=== PATIENT | female | born 1990 | race Caucasian/White ===

== ENCOUNTER 2023-06-06 20:56 | Emergency (ER) | payer OTHER, SELFPAY ==
[2023-06-06 21:00] VITALS: BP 146/81
[2023-06-06 21:19] LABS: % Basophils 0.8 % (0-2); % Eosinophils 3.1 % (0-6); % Immature Granulocytes 0.2 % (0-0.5); % Lymphocytes 39.2 % (20.5-51.1); % Monocytes 6.9 % (1.7-9.3); % Neutrophils 49.8 % (42.2-75.2); Absolute Basophils 0.1 10^3/uL (0-0.2); Absolute Eosinophils 0.3 10^3/uL (0-0.7); Absolute Lymphocytes 3.3 10^3/uL (1.2-3.4); Absolute Monocytes 0.6 10^3/uL (0.1-0.6); Absolute Neutrophils 4.2 10^3/uL (1.4-6.5); Hematocrit 35.2 % (37.0-47.0); Hemoglobin 11.9 g/dL (12.0-16.0); Mean Corp Hgb Conc. 33.8 g/dL (33.0-37.0); Mean Corpuscular Hgb 29.8 pg (27.0-31.0); Mean Platelet Volume 8.2 fL (7.4-10.4); Nucleated Red Blood Cells % 0 %; Platelet Count 295 10^3/uL (130-400); Red Cell Dist. Width 12.5 % (11.5-14.5); White Blood Cell Count 8.5 10^3/uL (4.8-10.8)
[2023-06-06 21:29] LABS: HCG, Serum Qualitative Screen Negative
[2023-06-06 21:34] LABS: ALT (SGPT) 29 U/L (0-35); AST (SGOT) 26 U/L (14-36); Albumin 4.5 g/dl (3.5-5.0); Alkaline Phosphatase 49 U/L (38-126); Blood Urea Nitrogen 13 mg/dl (7-17); Calcium 9.3 mg/dl (8.4-10.2); Carbon Dioxide 24 mmol/L (22-30); Chloride 104 mmol/L (98-107); Glucose 99 mg/dl (70-99); Sodium 138 mmol/L (135-145); Total Bilirubin 0.4 mg/dl (0.2-1.3); Total Protein 7.4 g/dl (6.3-8.2); eGFR > 60.00
[2023-06-06 21:39] LABS: Potassium 3.8 mmol/L (3.5-5.1)
[2023-06-06 22:30] VITALS: BP 120/78
[2023-06-06 23:00] VITALS: BP 124/82
--- NOTE | 2023-06-07 | ED.GENMED ---
History of Present Illness
General
Chief Complaint: Rectal Bleeding
Source: patient
Exam Limitations: none
Time Seen by Provider: 06/06/23 23:23
Nursing documentation reviewed up to this point in time: agreed with
Travel History
Have you had any contact with someone who has COVID-19?: No
Do you have any symptoms of coronavirus? Fever > 100 degrees, chills, cough, shortness of breath, sore throat, loss of taste or smell, muscle aches, or headache?: No
History of Present Illness
History of Present Illness:
This is a 33-year-old woman who complains of bright red blood streaked around brown soft stools that began this evening. She has been passing soft stools throughout the day today and has had several bowel movements tonight passing soft stools mixed
with bright red blood. She denies abdominal pain but does admit to very mild rectal pressure. She denies anal pain, denies pain with defecating. She denies nausea nor vomiting, no back pain, no chest pain, no dizziness nor lightheadedness, no
fevers or chills.
No history of similar episodes in the past.
She takes no anticoagulants.
She shows me a picture on her cell phone with a few small soft stools in the toilet with scant bright red blood tingeing of toilet water but no clots nor significant blood mixed with stool.
She denies risk of , has Mirena IUD in place.
Past History
Past History
ED Past Medical History: Psychiatric (anxiety) and Other (IBS)
ED Past Surgical History: Cholecystectomy (2010), and Other (Chiari malf surgery 2017, breast implants)
Social History
Tobacco: Non-smoker
Alcohol: None
Drug: None
Personal:
Living: with family
Employment: Employed
Family History
Family History: Other (Noncontributory)
Phy Exam
Physical Exam
Physical Exam:
GENERAL: 33-year-old female appears her stated age, bright and alert, pleasant, appears in no acute distress.
EYE: anicteric
NECK: Supple, nontender, no meningismus, no significant adenopathy.
ENT: oral mucosa is moist. No rhinorrhea.
CARDIAC: Regular rate and rhythm. no murmur.
LUNGS: Clear breath sounds bilaterally, no acute respiratory distress, no wheezes/rales/rhonchi
ABDOMEN: Soft, nondistended, without focal tenderness, no r/g, no cvat. normoactive BS. Rectal exam reveals no anal fissures nor external hemorrhoids. There is mild soft fullness palpable along the posterior mid rectal wall but no rectal
tenderness. No gross blood per rectum. Heme positive.
NEUROLOGICAL: Alert and oriented x3, no focal neuro deficits. Gait is verdugo and steady.
SKIN: Warm and dry, normal color, skin intact. No rash.
MUSCULOSKELETAL: No C/C/E. peripheral pulses are full and equal b/l. No palpable tenderness.
PSYCH: Normal and appropriate interaction.
Course
Orders/Labs/Results
Orders:
Orders
06/06/23 21:04
Test Result ONCE
06/06/23 21:12
Type+Screen Urgent
Complete Blood Count/With Diff Urgent
Comprehensive Metabolic Panel Urgent
HCG, Serum Qualitative Screen Urgent
06/07/23 00:15
Anusol Hc Suppository [Anusol Hc] 25 mg RECTAL NOW STA
Abnormal Lab Results
06/06/23
21:12
RBC 4.00 L 10^6/uL
(4.20-5.40)
Hgb 11.9 L g/dL
(12.0-16.0)
Hct 35.2 L %
(37.0-47.0)
06/06/23 21:12
06/06/23 21:12
Vital Signs
Initial and Last Documented VS:
Initial Vital Signs
Temp Pulse Resp BP Pulse Ox
98.6 F 82 17 146/81 100
06/06/23 21:00 06/06/23 21:00 06/06/23 21:00 06/06/23 21:00 06/06/23 21:00
Last Documented Vital Signs
Temp Pulse Resp BP Pulse Ox
98.6 F 76 16 124/82 100
06/06/23 21:00 06/06/23 22:35 06/06/23 22:35 06/06/23 23:00 06/06/23 23:15
MDM/Problems Addressed
Differential Diagnosis Includes:
Patient presents with bright red blood per rectum mixed about soft formed stools.
Admits to mild rectal pressure but no pain, no abdominal pain, hemodynamically stable and no symptoms suggestive of hemodynamic instability.
Exam remarkable for mild soft fullness posterior mid to proximal rectum on digital rectal exam but no tenderness, no gross blood per rectum.
Labs are reassuring with hemoglobin of 11.9
I suspect bright red rectal bleeding is internal hemorrhoid in nature and recommend a course of Anusol suppositories.
Discussed importance of remaining well-hydrated, adding fiber to diet. Avoid straining at stool.
Will refer to GI for follow-up.
Return precautions discussed.
*Pulse Oximetry
Patient hypoxic: no
*Critical Care Note
Total Time (30-74mins, 75-104mins- exclusive of procedures): Not Applicable
ED Attending Note
-
Portions of this chart may have been created with voice recognition software.� Occasional wrong word or��sound alike� substitutions may have occurred due to the inherent limitations of voice recognition software.
Discharge Plan
Departure
Patient Disposition: Home (Routine Discharge)
Date of Disposition: 06/07/23
Time of Disposition: 00:04
Patient with high blood pressure during this ER visit?: No
Condition: Good
Discharge Problem:
Bright red rectal bleeding, Internal bleeding hemorrhoids
Instructions: Hemorrhoids (DC), Gastrointestinal Bleeding (DC)
Prescriptions:
New
hydrocortisone acetate [Anusol-HC] 25 mg suppository
25 mg [place] BID Qty: 24 0RF
No Action
Celexa:
20 mg PO DAILY
sucralfate [Carafate] 1 GM/10 ML suspension
1 gm PO QID Qty: 400 0RF
cephalexin 500 mg capsule
500 mg PO Q6H 10 Days Qty: 40 0RF
Referrals:
Hardik Wei MD [Active] - Call in 1-3 days for appt
Erica Cohen CRNP [Family Provider] -
Interventions
Interventions:
*Risk Screen - Suicide Last Done: 06/06/23 21:00
*General Assessment Last Done: 06/06/23 21:00
*Neglect/Abuse Screening Last Done: 06/06/23 21:00
ED- Fall Risk Assessment Last Done: 06/06/23 22:35
*ED COVID-19 Vaccine History Last Done: 06/06/23 21:00
CG-Cdhyxl-Qsfoiyqxvg Assessment Last Done: 06/06/23 22:35
ED- Cardiac Assessment Last Done: 06/06/23 22:35
ED- Pulmonary Assessment Last Done: 06/06/23 22:35
[2023-06-07] MEDS: ANUSOL HC 25 MG RECTAL (00:42)
== END 2023-06-07 00:49 | disposition home or self-care (01) ==
LOC: EMR 20:56
PROVIDERS: Emergency Medicine; EMERGENCY PHYSICIAN Emergency Medicine; FAMILY PHYSICIAN Nurse Practitioner Adult Health
DX: K62.5 Hemorrhage of anus and rectum (principal); K64.8 Other hemorrhoids; F41.9 Anxiety disorder, unspecified; K58.9 Irritable bowel syndrome, unspecified; Z90.49 Acquired absence of other specified parts of digestive tract
CPT/HCPCS: 99283; 80053; 84703; 85025; 86850; 86900; 86901

== ENCOUNTER → 2023-06-20 20:38 | Outpatient (REF) | payer OTHER, SELFPAY | LOC: MRI 3T 20:38 | PROVIDERS: ATTENDING PHYSICIAN Nurse Practitioner; FAMILY PHYSICIAN Nurse Practitioner Adult Health | DX: Z86.69 Personal history of other diseases of the nervous system and sense organs (principal); R51.9 Headache, unspecified | CPT/HCPCS: 70551 ==

== ENCOUNTER → 2023-08-27 10:45 | Outpatient (REF) | payer OTHER, SELFPAY | LOC: RAD 10:45 | PROVIDERS: ATTENDING PHYSICIAN Internal Medicine Gastroenterology; FAMILY PHYSICIAN Nurse Practitioner Adult Health | DX: K52.9 Noninfective gastroenteritis and colitis, unspecified (principal) | CPT/HCPCS: 74022 ==

== ENCOUNTER → 2024-01-15 19:46 | Outpatient (REF) | payer OTHER, SELFPAY | LOC: MRI 19:46 | PROVIDERS: ATTENDING PHYSICIAN Physician Assistant Medical; FAMILY PHYSICIAN Nurse Practitioner Adult Health | DX: M79.609 Pain in unspecified limb (principal); R20.2 Paresthesia of skin | CPT/HCPCS: 70553; 72156; A9575 ==

== ENCOUNTER 2024-01-17 18:11 | Emergency (ER) | payer OTHER, SELFPAY ==
[2024-01-17 18:13] VITALS: BP 136/86
[2024-01-17 19:39] VITALS: BP 122/71
[2024-01-17 20:30] LABS: % Basophils 0.4 % (0-2); % Immature Granulocytes 0.2 % (0-0.5); % Lymphocytes 35.7 % (20.5-51.1); % Monocytes 6.2 % (1.7-9.3); % Neutrophils 57.5 % (42.2-75.2); Absolute Lymphocytes 3.2 10^3/uL (1.2-3.4); Absolute Monocytes 0.6 10^3/uL (0.1-0.6); Absolute Neutrophils 5.2 10^3/uL (1.4-6.5); Hematocrit 38.4 % (37.0-47.0); Hemoglobin 12.8 g/dL (12.0-16.0); Mean Corp Hgb Conc. 33.3 g/dL (33.0-37.0); Mean Corpuscular Volume 90.1 fL (81.0-99.0); Mean Platelet Volume 8.3 fL (7.4-10.4); Nucleated Red Blood Cells % 0 %; Platelet Count 265 10^3/uL (130-400); Red Blood Cell Count 4.26 10^6/uL (4.20-5.40); Red Cell Dist. Width 12.2 % (11.5-14.5); White Blood Cell Count 9.1 10^3/uL (4.8-10.8)
--- NOTE | 2024-01-17 20:30 | ED.GENMED ---
History of Present Illness
General
Chief Complaint: Musculo-Skeletal Complaint
Source: patient
Exam Limitations: none
Time Seen by Provider: 01/17/24 19:52
History of Present Illness
History of Present Illness:
Patient describing paresthesias to the right arm and right leg for 2 months. Is followed by neurology at [facility]. Patient had a recent MRI of the brain and cervical spine at our hospital. Results unknown. What brought her in today
as this numbness has been a continual issue for months is some intermittent mid back spasm-like episodes a few times per day each lasting about 30 seconds. None now. In addition she also has some paresthesias now of her left arm. She has no
weakness speech issues visual issues gait issues swallowing issues. No incontinence issues. No chest pain shortness of breath or other complaints.
Past History
Past History
ED Past Medical History: Psychiatric (anxiety), Other (IBS) and Other (Chiari malformation)
ED Past Surgical History: Cholecystectomy (2009), and Other (Chiari malf surgery 2017, breast implants)
Social History
Tobacco: Non-smoker
Alcohol: None
Drug: None
Personal:
Living: with family
Employment: Employed
Family History
Family History: Other (Noncontributory)
Review of Systems
Review of Systems
All Other Systems: Not applicable
Constitutional: Denies fever or chills
Respiratory: Reports no symptoms
Cardiac: Reports no symptoms
ABD/GI: Reports no symptoms
Phy Exam
Physical Exam
Physical Exam:
GENERAL: Alert and oriented in no apparent distress
EYE: Orbits normal.
NECK: Supple, no carotid bruit
ENT: Pharynx without erythema
CARDIAC: Regular rate and rhythm without any obvious murmurs. Great pulses to both upper extremities. Nothing to suspect vascular issue
LUNGS: Clear breath sounds,normal
ABDOMEN: Soft, without focal tenderness or distention
NEUROLOGICAL: Alert and oriented , cranial nerves II through XII intact. Extraocular muscles intact. Speech normal. No drift. Kxdyjn-jv-brzp normal. Gait normal. Negative Romberg. Patellar reflexes intact. Pinprick and light touch intact
bilaterally although subjectively states she feels there is slight difference
SKIN: Warm and dry, no rash or lesion, no discoloration, skin intact.
MUSCULOSKELETAL: No edema,no deformity.Good color
PSYCH: Normal and appropriate interaction.
Course
Orders/Labs/Results
Orders:
Orders
01/17/24 18:12
Electrocardiogram (*1) Urgent
Reason for Study: Chest Pain
01/17/24 18:13
EKG- Treatment ONCE
01/17/24 20:14
Cardiac Monitoring- Treatment ONCE
IV Insert/Care/Rem.- Treatment PRN
CR Chest - 2 Views Urgent
Comment:
Reason For Exam: mid back pain
Pulse Ox/cont/shift [RESP] Stat
Quantity: 1
01/17/24 20:15
Test Result ONCE
01/17/24 20:18
Complete Blood Count/With Diff Urgent
Comprehensive Metabolic Panel Urgent
D-Dimer Urgent
HCG, Serum Qualitative Screen Urgent
Lipase Urgent
TSH Reflex To Free T4 Urgent
Troponin I Urgent
01/17/24 20:18
01/17/24 20:18
Vital Signs
Initial and Last Documented VS:
Initial Vital Signs
Temp Pulse Resp BP Pulse Ox
98 F 92 16 136/86 95
01/17/24 18:13 01/17/24 18:13 01/17/24 18:13 01/17/24 18:13 01/17/24 18:13
Last Documented Vital Signs
Temp Pulse Resp BP Pulse Ox
98 F 78 14 120/74 99
01/17/24 18:13 01/17/24 21:37 01/17/24 21:37 01/17/24 21:37 01/17/24 21:37
MDM/Problems Addressed
Differential Diagnosis Includes:
Patient describing paresthesias ongoing for months with some extension of the paresthesias to the left upper extremity. However MRIs were reviewed of the cervical spine and brain with and without contrast done 2 days ago which were unremarkable for
acute issue. Nothing to also support a spinal issue or nerve compression. Patient's neurologic exam is normal. As far as this intermittent back pain. Low suspicion for any serious etiology although cardiac testing D-dimer wall be done.
*Pulse Oximetry
Patient hypoxic: no
*EKG
Interpreted by ED Provider?: Yes
Interpretation: normal
Comparison EKG: no changes
Heart Rate: 76
Rate: normal
Rhythm: sinus
[place]: normal axis
Interval: normal interval
QRS Pattern: normal QRS
Ischemia: no ischemia
*Critical Care Note
Total Time (30-74mins, 75-104mins- exclusive of procedures): Not Applicable
Data Reviewed
Review of Other/Old Records Reveals: Labs, Records, Radiology Studies and Testing
Update Note
Update Note:
Patient remained clinically stable. No serious etiology for her paresthesia symptoms which have been going on for months. Recent MRI is unremarkable. As for this intermittent back pain which she does not have on arrival, no serious etiology
found. No indication for admission.
ED Attending Note
-
Portions of this chart may have been created with voice recognition software.� Occasional wrong word or��sound alike� substitutions may have occurred due to the inherent limitations of voice recognition software.
Discharge Plan
Departure
Patient Disposition: Home (Routine Discharge)
Date of Disposition: 01/17/24
Time of Disposition: 22:20
Patient with high blood pressure during this ER visit?: Yes
Discharge Problem:
Ongoing paresthesias, Intermittent mid back pain
Instructions: Paresthesia (DC)
Prescriptions:
No Action
Celexa:
20 mg PO DAILY
sucralfate [Carafate] 1 GM/10 ML suspension
1 gm PO QID Qty: 400 0RF
cephalexin 500 mg capsule
500 mg PO Q6H 10 Days Qty: 40 0RF
hydrocortisone acetate [Anusol-HC] 25 mg suppository
25 mg [place] BID Qty: 24 0RF
Referrals:
Erica Cohen CRNP [Family Provider] - Follow up in 2-3 days
Activity Restrictions/Additional Instructions:
Call your neurologist tomorrow morning for close follow-up
Return with increased episodes of mid back pain chest pain shortness of breath fever or any other concerning symptoms
Interventions
Interventions:
*Risk Screen - Suicide Last Done: 01/17/24 18:13
*General Assessment Last Done: 01/17/24 20:28
*Neglect/Abuse Screening Last Done: 01/17/24 18:13
ED- Fall Risk Assessment Last Done: 01/17/24 20:28
*ED COVID-19 Vaccine History Last Done: 01/17/24 20:28
*Nursing Disposition Last Done: 01/17/24 22:44
ED-Musculoskeletal Assessment Last Done: 01/17/24 20:28
Discharge Date and Time
Discharge Date/Time: 01/17/24 22:44
Print Language: MALDIVIAN
[2024-01-17 20:43] LABS: HCG, Serum Qualitative Screen Negative
[2024-01-17 20:49] LABS: ALT (SGPT) 28 U/L (0-35); AST (SGOT) 24 U/L (14-36); Albumin 4.8 g/dl (3.5-5.0); Alkaline Phosphatase 55 U/L (38-126); Blood Urea Nitrogen 15 mg/dl (7-17); Calcium 9.3 mg/dl (8.4-10.2); Carbon Dioxide 24 mmol/L (22-30); Chloride 102 mmol/L (98-107); Glucose 96 mg/dl (70-99); Lipase 80 U/L (23-300); Potassium 3.8 mmol/L (3.5-5.1); Sodium 141 mmol/L (135-145); Total Bilirubin 0.3 mg/dl (0.2-1.3); Total Protein 7.7 g/dl (6.3-8.2); eGFR > 60.00
[2024-01-17 20:54] LABS: Troponin I < 0.012 ng/ml
[2024-01-17 21:02] LABS: D-Dimer < 0.27 ug/mlFEU (0.00-0.50)
[2024-01-17 21:15] LABS: TSH Reflex To Free T4 0.55 uIU/ml (0.47-4.68)
[2024-01-17 21:37] VITALS: BP 120/74
== END 2024-01-17 22:44 | disposition home or self-care (01) ==
LOC: EMR 18:11
PROVIDERS: EMERGENCY PHYSICIAN Emergency Medicine; FAMILY PHYSICIAN Nurse Practitioner Adult Health
DX: R20.2 Paresthesia of skin (principal); M54.6 Pain in thoracic spine; F41.9 Anxiety disorder, unspecified; K58.9 Irritable bowel syndrome, unspecified; Z98.82 Breast implant status
CPT/HCPCS: 99283; 71046; 80053; 83690; 84443; 84484; 84703; 85025; 85379; 93005

== ENCOUNTER → 2024-03-21 11:37 | Outpatient (REF) | payer OTHER, SELFPAY ==
[2024-03-24 02:00] LABS: Quantiferon Mitogen minus NIL 9.89 IU/mL; Quantiferon NIL 0.11 IU/mL; Quantiferon Plus TB1 minus NIL 0.06 IU/mL (<=0.34); Quantiferon Plus TB2 minus NIL 0.18 IU/mL (<=0.34); Quantiferon TB Gold Plus Negative (Negative)
== END ==
LOC: OHS 11:37
PROVIDERS: ATTENDING PHYSICIAN Nurse Practitioner Family
DX: Z23 Encounter for immunization (principal)
CPT/HCPCS: 36415; 86480

== ENCOUNTER → 2024-05-12 07:58 | Outpatient (REF) | payer OTHER, SELFPAY ==
[2024-05-12 19:38] LABS: Hepatitis B Surface Antibody Positive
[2024-05-12 20:54] LABS: Rubella Positive
== END ==
LOC: OHS 07:58
PROVIDERS: ATTENDING PHYSICIAN Nurse Practitioner Family
DX: Z23 Encounter for immunization (principal)
CPT/HCPCS: 36415; 86706; 86735; 86762; 86765; 86787